=== PATIENT | male | born 1995 | race Caucasian/White ===

== ENCOUNTER 2022-11-21 16:49 | Emergency (ER) | payer MEDICAID ==
[~2022-11-21] VITALS: Ht 170.2 cm; Wt 77.1 kg
[2022-11-21 17:13] VITALS: BP 110/56
--- NOTE | 2022-11-21 17:15 | NUR ---
LEFT ELBOW PAIN R/T GROUND LEVEL FALL
--- NOTE | 2022-11-21 17:15 | NUR ---
Norma moran in [facility] - 11/21/22 at 1905 by ANIA LEFT ELBOW PAIN R/T GROUND LEVEL FALL
--- NOTE | 2022-11-21 18:55 | NUR ---
AT BEDSIDE FOR EVAL
--- NOTE | 2022-11-21 20:03 | NUR ---
X-RAY AT BEDSIDE
== END 2022-11-21 20:52 | disposition home or self-care (01) ==
LOC: ER 17:00
DX: S50.02XA Contusion of left elbow, initial encounter (principal); Z60.2 Problems related to living alone; W17.89XA Other fall from one level to another, initial encounter; Y93.39 Activity, other involving climbing, rappelling and jumping off; Y92.89 Other specified places as the place of occurrence of the external cause; Y99.8 Other external cause status
CPT/HCPCS: 73080-TC

== ENCOUNTER 2023-02-13 00:22 | Emergency (ER) | payer MEDICAID, OTHER ==
[~2023-02-13] VITALS: Ht 170.2 cm; Wt 81.2 kg
[2023-02-13] MEDS ORDERED: CEPHALEXIN MONOHYDRATE 500 MG CAPSULE PO ONE ×2 (00:30)
[2023-02-13] MEDS ORDERED: CEPH500C2 PO (00:30)
[2023-02-13] MEDS ORDERED: SULF1TAB48 PO (00:30)
[2023-02-13] MEDS ORDERED: SULFAMETH/TRIMETH 800/160 MG 1 UDTAB TABLET ONE (00:53)
[2023-02-13] MEDS ORDERED: SULFAMETH/TRIMETH 800/160 MG 1 UDTAB TABLET PO ONE (01:00)
[2023-02-13 01:13] LABS: BASOPHILS # (AUTO) 0.2 K/uL (0.0-0.2); BASOPHILS % (AUTO) 1.9 % (0.0-2.0); EOSINOPHILS % (AUTO) 0.3 % (0.0-6.0); HEMATOCRIT 41 % (39-51); LYMPHOCYTES # (AUTO) 1.3 K/uL (0.8-4.8); LYMPHOCYTES % (AUTO) 13.3 % (20.0-44.0); MEAN CORPUSCULAR HEMOGLOBIN 31 PG (26.0-33.0); MEAN CORPUSCULAR HGB CONC 34 g/dl (31.0-36.0); MEAN CORPUSCULAR VOLUME 90 fL (80-96); MONOCYTES # (AUTO) 0.4 K/uL (0.1-1.30); MONOCYTES % (AUTO) 3.9 % (2.0-12.0); NEUTROPHILS # (AUTO) 7.8 K/uL (1.8-8.9); NEUTROPHILS % (AUTO) 80.6 % (43.0-81.0); PLATELET COUNT (AUTO) 230 K/uL (150-450); RED BLOOD CELL COUNT(AUTO) 4.59 MIL/uL (4.5-6.0); RED CELL DISTRIBUTION WIDTH 13.2 % (11.5-15.0); WHITE BLOOD COUNT (AUTO) 9.6 K/uL (4.3-11.0)
[2023-02-13 01:21] LABS: APPEARANCE,URINE CLEAR (CLEAR); BILIRUBIN,URINE NEGATIVE (NEGATIVE); BLOOD, URINE NEGATIVE Ery/uL (NEGATIVE); COLOR,URINE YELLOW (YELLOW); KETONES,URINE NEGATIVE (NEGATIVE); LEUKOCYTE ESTERASE ,URINE NEGATIVE (NEGATIVE); NITRITE, URINE NEGATIVE (NEGATIVE); PROTEIN,URINE NEGATIVE (NEGATIVE); UGLUCOSE NEGATIVE (NEGATIVE)
[2023-02-13 01:31] LABS: AMPHETAMINE, URINE NEGATIVE (NEGATIVE); BARBITURATE, URINE NEGATIVE (NEGATIVE); BENZODIAZEPINE, URINE NEGATIVE (NEGATIVE); COCCAINE, URINE NEGATIVE (NEGATIVE); OPIATE, URINE NEGATIVE (NEGATIVE); PHENCYCLIDINE SCREEN,URINE NEGATIVE (NEGATIVE)
[2023-02-13 01:31] LABS: CALCIUM, SERUM 8.9 mg/dL (8.5-10.1); CARBON DIOXIDE 26 mmol/L (21-32); CHLORIDE 105 mmol/L (98-107); CREATININE 1.1 mg/dL (0.6-1.3); GLUCOSE 94 mg/dL (74-106); POTASSIUM 3.7 mmol/L (3.5-5.1); SODIUM SERUM 140 mmol/L (136-145); UREA NITROGEN, BLOOD 12 mg/dL (7-18)
[2023-02-13 01:33] LABS: CANNABINOID, URINE POSITIVE (NEGATIVE)
[2023-02-13 01:44] LABS: ALANINE AMINOTRANSFERASE 27 U/L (12-78); ALBUMIN 4.1 g/dL (3.4-5.0); ALKALINE PHOSPHATASE 46 U/L (46-116); ASPARTATE AMINOTRANSFERASE 17 U/L (15-37); BILIRUBIN,DIRECT 0.1 mg/dL (0.0-0.2); BILIRUBIN,TOTAL 0.2 mg/dL (0.2-1.0); TOTAL PROTEIN, SERUM 7.1 g/dL (6.4-8.2)
[2023-02-13 01:45] LABS: ACETAMINOPHEN <10 ug/ml (10-30); ALCOHOL, BLOOD < 3 mg/dL (0-10); SALICYLATE 2.4 mg/dL (2.8-20.0)
[2023-02-13] MEDS ORDERED: ACETAMINOPHEN 325 MG TABLET ONE (02:28)
[2023-02-13] MEDS ORDERED: ACETAMINOPHEN 325 MG TABLET PO ONE (02:30)
[2023-02-13 03:02] VITALS: BP 132/90; TEMP 98.2; O2SAT 100
== END 2023-02-13 03:02 | disposition home or self-care (01) ==
LOC: ER 00:23
DX: L03.113 Cellulitis of right upper limb (principal); R46.1 Bizarre personal appearance; Z60.2 Problems related to living alone; Z20.822 Contact with and (suspected) exposure to COVID-19
CPT/HCPCS: 99284; 85025; 80048; 80076; 81003; 36415; 87426; 80143; 80320; 80307; C9803; G0480

== ENCOUNTER 2023-02-14 08:05 | Emergency (ER) | payer OTHER ==
[~2023-02-14] VITALS: Ht 170.2 cm; Wt 80.7 kg
[~2023-02-14 08:05] MED LIST: CEPH500C2 PO; SULF1TAB48 PO
[2023-02-14 09:02] LABS: BASOPHILS # (AUTO) 0.1 K/uL (0.0-0.2); BASOPHILS % (AUTO) 0.9 % (0.0-2.0); EOSINOPHILS # (AUTO) 0.1 K/uL (0.0-0.7); EOSINOPHILS % (AUTO) 0.9 % (0.0-6.0); HEMATOCRIT 44 % (39-51); HEMOGLOBIN 14.8 g/dL (13.5-17.5); LYMPHOCYTES # (AUTO) 2.2 K/uL (0.8-4.8); LYMPHOCYTES % (AUTO) 31.9 % (20.0-44.0); MEAN CORPUSCULAR HEMOGLOBIN 31 PG (26.0-33.0); MEAN CORPUSCULAR HGB CONC 34 g/dl (31.0-36.0); MEAN CORPUSCULAR VOLUME 91 fL (80-96); MONOCYTES # (AUTO) 0.6 K/uL (0.1-1.30); MONOCYTES % (AUTO) 8.7 % (2.0-12.0); NEUTROPHILS # (AUTO) 3.9 K/uL (1.8-8.9); NEUTROPHILS % (AUTO) 57.6 % (43.0-81.0); PLATELET COUNT (AUTO) 238 K/uL (150-450); RED BLOOD CELL COUNT(AUTO) 4.83 MIL/uL (4.5-6.0); RED CELL DISTRIBUTION WIDTH 13.4 % (11.5-15.0); WHITE BLOOD COUNT (AUTO) 6.8 K/uL (4.3-11.0)
[2023-02-14 09:11] LABS: APPEARANCE,URINE CLEAR (CLEAR); BILIRUBIN,URINE NEGATIVE (NEGATIVE); BLOOD, URINE NEGATIVE Ery/uL (NEGATIVE); COLOR,URINE YELLOW (YELLOW); KETONES,URINE NEGATIVE (NEGATIVE); LEUKOCYTE ESTERASE ,URINE NEGATIVE (NEGATIVE); NITRITE, URINE NEGATIVE (NEGATIVE); PH,URINE 6.5 (5.0-8.0); PROTEIN,URINE NEGATIVE (NEGATIVE); UGLUCOSE NEGATIVE (NEGATIVE)
[2023-02-14 09:26] LABS: ALANINE AMINOTRANSFERASE 23 U/L (12-78); ALBUMIN 4.3 g/dL (3.4-5.0); ALKALINE PHOSPHATASE 50 U/L (46-116); AMPHETAMINE, URINE NEGATIVE (NEGATIVE); ASPARTATE AMINOTRANSFERASE 13 U/L (15-37); BARBITURATE, URINE NEGATIVE (NEGATIVE); BENZODIAZEPINE, URINE NEGATIVE (NEGATIVE); BILIRUBIN,DIRECT 0.1 mg/dL (0.0-0.2); BILIRUBIN,TOTAL 0.2 mg/dL (0.2-1.0); CALCIUM, SERUM 9.4 mg/dL (8.5-10.1); CANNABINOID, URINE NEGATIVE (NEGATIVE); CARBON DIOXIDE 28 mmol/L (21-32); CHLORIDE 107 mmol/L (98-107); COCCAINE, URINE NEGATIVE (NEGATIVE); CREATININE 1.3 mg/dL (0.6-1.3); GLUCOSE 62 mg/dL (74-106); OPIATE, URINE NEGATIVE (NEGATIVE); PHENCYCLIDINE SCREEN,URINE NEGATIVE (NEGATIVE); POTASSIUM 3.2 mmol/L (3.5-5.1); SODIUM SERUM 144 mmol/L (136-145); TOTAL PROTEIN, SERUM 7.3 g/dL (6.4-8.2); UREA NITROGEN, BLOOD 10 mg/dL (7-18)
[2023-02-14 09:28] LABS: ALCOHOL, BLOOD < 3 mg/dL (0-10); SALICYLATE 2.5 mg/dL (2.8-20.0)
[2023-02-14 09:29] LABS: ACETAMINOPHEN <10 ug/ml (10-30)
[2023-02-14] MEDS ORDERED: POTASSIUM CHLORIDE 20 MEQ TAB.PRT.SR PO ONE (10:57)
[2023-02-14] MEDS: POTASSIUM CHLORIDE 20 MEQ TAB.PRT.SR PO ONE (11:00)
[2023-02-14 19:34] VITALS: BP 139/73; TEMP 98.4; O2SAT 99
== END 2023-02-14 19:30 | disposition short-term general hospital (02) ==
LOC: ER 08:08
DX: R46.1 Bizarre personal appearance (principal); Z79.899 Other long term (current) drug therapy; Z20.822 Contact with and (suspected) exposure to COVID-19; Z60.2 Problems related to living alone
CPT/HCPCS: 99285; 85025; 80048; 80076; 81003; 36415; 82962 ×2; 87426; 80143; 80320; 80307; C9803; G0480

== ENCOUNTER → 2023-04-03 | Emergency (ER) | payer OTHER ==
[~2023-04-03] VITALS: Ht 167.6 cm; Wt 81.6 kg
[2023-04-03 13:50] VITALS: BP 128/73; TEMP 98.7; O2SAT 98
== END | disposition left against medical advice (07) ==
LOC: ER 13:46
DX: R45.89 Other symptoms and signs involving emotional state (principal); Z79.899 Other long term (current) drug therapy; Z60.2 Problems related to living alone

== ENCOUNTER 2023-04-07 02:23 | Emergency (ER) | payer OTHER ==
[~2023-04-07] VITALS: Ht 162.6 cm; Wt 68.0 kg
[2023-04-07 02:33] VITALS: BP 146/78; TEMP 98.3; O2SAT 98
== END 2023-04-07 04:24 | disposition left against medical advice (07) ==
LOC: ER 02:32
DX: S20.419A Abrasion of unspecified back wall of thorax, initial encounter (principal); Z53.21 Procedure and treatment not carried out due to patient leaving prior to being seen by health care provider; X58.XXXA Exposure to other specified factors, initial encounter; Y93.89 Activity, other specified; Y92.89 Other specified places as the place of occurrence of the external cause; Y99.8 Other external cause status

== ENCOUNTER 2023-04-27 23:12 | Emergency (ER) | payer OTHER ==
[~2023-04-27] VITALS: Ht 170.2 cm; Wt 82.6 kg
[2023-04-28 00:23] LABS: BASOPHILS # (AUTO) 0.1 K/uL (0.0-0.2); BASOPHILS % (AUTO) 1.1 % (0.0-2.0); EOSINOPHILS # (AUTO) 0.1 K/uL (0.0-0.7); EOSINOPHILS % (AUTO) 1.4 % (0.0-6.0); HEMATOCRIT 47 % (39-51); HEMOGLOBIN 15.7 g/dL (13.5-17.5); LYMPHOCYTES # (AUTO) 2.2 K/uL (0.8-4.8); LYMPHOCYTES % (AUTO) 28.4 % (20.0-44.0); MEAN CORPUSCULAR HEMOGLOBIN 30 PG (26.0-33.0); MEAN CORPUSCULAR HGB CONC 33 g/dl (31.0-36.0); MEAN CORPUSCULAR VOLUME 91 fL (80-96); MONOCYTES # (AUTO) 0.4 K/uL (0.1-1.30); MONOCYTES % (AUTO) 5.8 % (2.0-12.0); NEUTROPHILS # (AUTO) 4.8 K/uL (1.8-8.9); NEUTROPHILS % (AUTO) 63.3 % (43.0-81.0); PLATELET COUNT (AUTO) 220 K/uL (150-450); RED BLOOD CELL COUNT(AUTO) 5.18 MIL/uL (4.5-6.0); RED CELL DISTRIBUTION WIDTH 13.6 % (11.5-15.0); WHITE BLOOD COUNT (AUTO) 7.6 K/uL (4.3-11.0)
[2023-04-28 00:45] LABS: CALCIUM, SERUM 9.1 mg/dL (8.5-10.1); CREATININE 1.1 mg/dL (0.6-1.3); POTASSIUM 3.7 mmol/L (3.5-5.1)
[2023-04-28 01:20] LABS: ALBUMIN 4.2 g/dL (3.4-5.0); BILIRUBIN,TOTAL 0.3 mg/dL (0.2-1.0); TOTAL PROTEIN, SERUM 7.2 g/dL (6.4-8.2)
[2023-04-28 01:46] VITALS: BP 139/66; TEMP 98.7; O2SAT 99
== END 2023-04-28 01:46 | disposition home or self-care (01) ==
LOC: ER 23:22
DX: R53.1 Weakness (principal); Z79.899 Other long term (current) drug therapy; Z60.2 Problems related to living alone
CPT/HCPCS: 36415; 80053-TC; 85025-TC

== ENCOUNTER 2023-07-03 22:50 | Emergency (ER) | payer OTHER ==
[~2023-07-03] VITALS: Ht 167.6 cm; Wt 83.0 kg
[2023-07-04 03:10] LABS: BASOPHILS % (AUTO) 0.5 % (0.0-2.0); EOSINOPHILS # (AUTO) 0.1 K/uL (0.0-0.7); EOSINOPHILS % (AUTO) 1.2 % (0.0-6.0); HEMATOCRIT 44 % (39-51); HEMOGLOBIN 14.9 g/dL (13.5-17.5); LYMPHOCYTES # (AUTO) 2.8 K/uL (0.8-4.8); LYMPHOCYTES % (AUTO) 27.8 % (20.0-44.0); MEAN CORPUSCULAR HEMOGLOBIN 31 PG (26.0-33.0); MEAN CORPUSCULAR HGB CONC 34 g/dl (31.0-36.0); MEAN CORPUSCULAR VOLUME 91 fL (80-96); MONOCYTES # (AUTO) 0.6 K/uL (0.1-1.30); MONOCYTES % (AUTO) 6.2 % (2.0-12.0); NEUTROPHILS # (AUTO) 6.4 K/uL (1.8-8.9); NEUTROPHILS % (AUTO) 64.3 % (43.0-81.0); PLATELET COUNT (AUTO) 228 K/uL (150-450); RED BLOOD CELL COUNT(AUTO) 4.83 MIL/uL (4.5-6.0); RED CELL DISTRIBUTION WIDTH 13.7 % (11.5-15.0)
[2023-07-04 03:17] LABS: APPEARANCE,URINE CLEAR (CLEAR); BILIRUBIN,URINE NEGATIVE (NEGATIVE); BLOOD, URINE NEGATIVE Ery/uL (NEGATIVE); COLOR,URINE YELLOW (YELLOW); KETONES,URINE NEGATIVE (NEGATIVE); LEUKOCYTE ESTERASE ,URINE 1+ (NEGATIVE); NITRITE, URINE NEGATIVE (NEGATIVE); PH,URINE 6.5 (5.0-8.0); PROTEIN,URINE NEGATIVE (NEGATIVE); UGLUCOSE NEGATIVE (NEGATIVE); UROBILINOGEN,URINE 0.2 EU/dL (0.2)
[2023-07-04 03:18] LABS: ADD URINE CULTURE YES; BACTERIA,URINE Rare /HPF (None Seen); RBC,URINE 0-2 /HPF (0-2); SQUAMOUS EPITHELIAL CELL,UR Rare /HPF (None Seen)
[2023-07-04 03:19] LABS: CALCIUM, SERUM 8.9 mg/dL (8.5-10.1); CARBON DIOXIDE 28 mmol/L (21-32); CHLORIDE 102 mmol/L (98-107); GLUCOSE 85 mg/dL (74-106); POTASSIUM 3.7 mmol/L (3.5-5.1); SODIUM SERUM 138 mmol/L (136-145); UREA NITROGEN, BLOOD 21 mg/dL (7-18)
[2023-07-04 03:33] LABS: ALANINE AMINOTRANSFERASE 28 U/L (12-78); ALBUMIN 3.9 g/dL (3.4-5.0); ALCOHOL, BLOOD < 3 mg/dL (0-10); ALKALINE PHOSPHATASE 47 U/L (46-116); ASPARTATE AMINOTRANSFERASE 16 U/L (15-37); BILIRUBIN,TOTAL 0.4 mg/dL (0.2-1.0); TOTAL PROTEIN, SERUM 7.4 g/dL (6.4-8.2)
[2023-07-04 03:36] LABS: AMPHETAMINE, URINE NEGATIVE (NEGATIVE); BARBITURATE, URINE NEGATIVE (NEGATIVE); BENZODIAZEPINE, URINE NEGATIVE (NEGATIVE); CANNABINOID, URINE NEGATIVE (NEGATIVE); COCCAINE, URINE NEGATIVE (NEGATIVE); OPIATE, URINE NEGATIVE (NEGATIVE); PHENCYCLIDINE SCREEN,URINE NEGATIVE (NEGATIVE)
[2023-07-04 06:50] VITALS: BP 139/89; TEMP 98.7; O2SAT 99
== END 2023-07-04 06:51 | disposition home or self-care (01) ==
LOC: ER 22:51
DX: S60.222A Contusion of left hand, initial encounter (principal); F41.9 Anxiety disorder, unspecified; Z59.00 Homelessness unspecified; W22.01XA Walked into wall, initial encounter; Y93.89 Activity, other specified; Y92.89 Other specified places as the place of occurrence of the external cause; Y99.8 Other external cause status
CPT/HCPCS: 36415; 73130-TC; 80053-TC; 81001; 85025-TC; 87086-TC; G0480

== ENCOUNTER 2023-08-28 22:08 | Emergency (ER) | payer OTHER ==
[~2023-08-28] VITALS: Ht 167.6 cm; Wt 83.9 kg
[2023-08-28 22:53] VITALS: BP 156/95; TEMP 98.1; O2SAT 98
[2023-08-28] MEDS ORDERED: CYCLOBENZAPRINE 10 MG TABLET ONE (23:31)
[2023-08-28] MEDS ORDERED: LIDOCAINE 5% (PATCH) 1 EA PATCH TP ONE (23:31)
[2023-08-28] MEDS ORDERED: ACETAMINOPHEN ES 500 MG TABLET ONE (23:31)
[2023-08-28] MEDS ORDERED: IBUPROFEN 400 MG TABLET ONE (23:32)
[2023-08-28] MEDS: ACETAMINOPHEN ES 500 MG TABLET PO ONE (23:39)
[2023-08-28] MEDS: LIDOCAINE 5% (PATCH) 1 EA PATCH TP ONE (23:39)
[2023-08-28] MEDS: IBUPROFEN 400 MG TABLET PO ONE (23:39)
[2023-08-28] MEDS: CYCLOBENZAPRINE 10 MG TABLET PO ONE (23:39)
[2023-08-28] MEDS ORDERED: CYCL5TAB PO (23:40)
[2023-08-28] MEDS ORDERED: IBUP-1955 PO (23:40)
[2023-08-28] MEDS ORDERED: ACET-2605 PO (23:40)
== END 2023-08-28 23:56 | disposition home or self-care (01) ==
LOC: ER 22:09
DX: M54.2 Cervicalgia (principal); Z79.899 Other long term (current) drug therapy; Z59.00 Homelessness unspecified

== ENCOUNTER 2023-10-07 15:34 | Emergency (ER) | payer OTHER ==
[~2023-10-07] VITALS: Ht 170.2 cm; Wt 63.5 kg
[~2023-10-07 15:34] MED LIST changes: +ACET-2605 PO; +CYCL5TAB PO; +IBUP-1955 PO
[2023-10-07 15:44] VITALS: BP 135/78; TEMP 98.4; O2SAT 98
[2023-10-07] MEDS ORDERED: MUPI22OI2 TP (18:11)
[2023-10-07] MEDS ORDERED: IBUP-1955 PO (18:11)
== END 2023-10-07 23:05 | disposition home or self-care (01) ==
LOC: ER 15:37
DX: S90.31XA Contusion of right foot, initial encounter (principal); M54.2 Cervicalgia; L98.8 Other specified disorders of the skin and subcutaneous tissue; Z59.00 Homelessness unspecified; W18.39XA Other fall on same level, initial encounter; Y93.89 Activity, other specified; Y92.89 Other specified places as the place of occurrence of the external cause; Y99.2 Volunteer activity
CPT/HCPCS: 72050-TC; 73630-TC

== ENCOUNTER 2023-10-13 03:52 | Emergency (ER) | payer OTHER ==
[~2023-10-13] VITALS: Ht 172.7 cm; Wt 81.6 kg
[~2023-10-13 03:52] MED LIST changes: +MUPI22OI2 TP
[2023-10-13 05:54] VITALS: BP 132/84; TEMP 98.2; O2SAT 98
== END 2023-10-13 05:56 | disposition home or self-care (01) ==
LOC: ER 03:57
DX: S80.262A Insect bite (nonvenomous), left knee, initial encounter (principal); S80.261A Insect bite (nonvenomous), right knee, initial encounter; Z59.00 Homelessness unspecified; Z79.899 Other long term (current) drug therapy; W57.XXXA Bitten or stung by nonvenomous insect and other nonvenomous arthropods, initial encounter; Y93.89 Activity, other specified; Y92.89 Other specified places as the place of occurrence of the external cause; Y99.8 Other external cause status

== ENCOUNTER 2023-10-13 06:47 | Emergency (ER) | payer OTHER ==
[~2023-10-13] VITALS: Ht 172.7 cm; Wt 82.6 kg
[2023-10-13 07:52] LABS: BASOPHILS % (AUTO) 0.9 % (0.0-2.0); EOSINOPHILS # (AUTO) 0.1 K/uL (0.0-0.7); EOSINOPHILS % (AUTO) 1.5 % (0.0-6.0); HEMATOCRIT 44 % (39-51); HEMOGLOBIN 14.8 g/dL (13.5-17.5); LYMPHOCYTES # (AUTO) 1.4 K/uL (0.8-4.8); LYMPHOCYTES % (AUTO) 29.2 % (20.0-44.0); MEAN CORPUSCULAR HEMOGLOBIN 31 PG (26.0-33.0); MEAN CORPUSCULAR HGB CONC 34 g/dl (31.0-36.0); MEAN CORPUSCULAR VOLUME 91 fL (80-96); MONOCYTES # (AUTO) 0.4 K/uL (0.1-1.30); MONOCYTES % (AUTO) 7.8 % (2.0-12.0); NEUTROPHILS # (AUTO) 2.9 K/uL (1.8-8.9); NEUTROPHILS % (AUTO) 60.6 % (43.0-81.0); PLATELET COUNT (AUTO) 222 K/uL (150-450); RED BLOOD CELL COUNT(AUTO) 4.81 MIL/uL (4.5-6.0); RED CELL DISTRIBUTION WIDTH 12.9 % (11.5-15.0); WHITE BLOOD COUNT (AUTO) 4.8 K/uL (4.3-11.0)
[2023-10-13 07:53] LABS: APPEARANCE,URINE CLEAR (CLEAR); BILIRUBIN,URINE NEGATIVE (NEGATIVE); BLOOD, URINE NEGATIVE Ery/uL (NEGATIVE); COLOR,URINE YELLOW (YELLOW); KETONES,URINE 1+ mg/dL (NEGATIVE); LEUKOCYTE ESTERASE ,URINE NEGATIVE (NEGATIVE); NITRITE, URINE NEGATIVE (NEGATIVE); PROTEIN,URINE NEGATIVE (NEGATIVE); UGLUCOSE NEGATIVE (NEGATIVE); UROBILINOGEN,URINE 0.2 EU/dL (0.2)
[2023-10-13 08:16] LABS: CALCIUM, SERUM 8.1 mg/dL (8.5-10.1); CARBON DIOXIDE 27 mmol/L (21-32); CHLORIDE 104 mmol/L (98-107); GLUCOSE 131 mg/dL (74-106); POTASSIUM 3.7 mmol/L (3.5-5.1); SODIUM SERUM 139 mmol/L (136-145); UREA NITROGEN, BLOOD 17 mg/dL (7-18)
[2023-10-13 08:18] LABS: AMPHETAMINE, URINE NEGATIVE (NEGATIVE); BARBITURATE, URINE NEGATIVE (NEGATIVE); BENZODIAZEPINE, URINE NEGATIVE (NEGATIVE); CANNABINOID, URINE NEGATIVE (NEGATIVE); COCCAINE, URINE NEGATIVE (NEGATIVE); OPIATE, URINE NEGATIVE (NEGATIVE); PHENCYCLIDINE SCREEN,URINE NEGATIVE (NEGATIVE)
[2023-10-13 08:24] LABS: ALANINE AMINOTRANSFERASE 21 U/L (12-78); ALBUMIN 3.7 g/dL (3.4-5.0); ALCOHOL, BLOOD < 3 mg/dL (0-10); ALKALINE PHOSPHATASE 54 U/L (46-116); ASPARTATE AMINOTRANSFERASE 19 U/L (15-37); BILIRUBIN,DIRECT 0.3 mg/dL (0.0-0.2); BILIRUBIN,TOTAL 0.8 mg/dL (0.2-1.0); TOTAL PROTEIN, SERUM 6.8 g/dL (6.4-8.2)
[2023-10-13 08:27] LABS: ADD URINE CULTURE NO; BACTERIA,URINE 1+ /HPF (None Seen); MUCUS,URINE Rare /LPF (None Seen); RBC,URINE 0-2 /HPF (0-2); SQUAMOUS EPITHELIAL CELL,UR None Seen /HPF (None Seen); WBC,URINE 0-2 /HPF (0-3)
[2023-10-13 08:31] LABS: ACETAMINOPHEN <10 ug/ml (10-30); SALICYLATE < 0.2 mg/dL (2.8-20.0)
[2023-10-13 13:31] VITALS: BP 120/71; TEMP 98.3; O2SAT 99
== END 2023-10-13 13:31 ==
LOC: ER 06:52
DX: R45.851 Suicidal ideations (principal); F32.A Depression, unspecified; F19.10 Other psychoactive substance abuse, uncomplicated; Z59.00 Homelessness unspecified; Z20.822 Contact with and (suspected) exposure to COVID-19; Z79.899 Other long term (current) drug therapy
CPT/HCPCS: 36415; 80048-TC; 80076-TC; 81001; 85025-TC; G0480

== ENCOUNTER 2023-11-09 16:14 | Emergency (ER) | payer OTHER ==
[~2023-11-09] VITALS: Ht 165.1 cm; Wt 83.0 kg
[2023-11-09 16:20] VITALS: BP 137/101; TEMP 98.6
[2023-11-09] MEDS ORDERED: ACET325C7 PO (16:48)
[2023-11-09 16:53] VITALS: O2SAT 98
== END 2023-11-09 16:54 | disposition home or self-care (01) ==
LOC: ER 16:19
DX: J02.9 Acute pharyngitis, unspecified (principal); F19.10 Other psychoactive substance abuse, uncomplicated; Z59.00 Homelessness unspecified

== ENCOUNTER 2023-12-15 15:54 | Emergency (ER) | payer OTHER ==
[~2023-12-15] VITALS: Ht 170.2 cm; Wt 86.2 kg
[~2023-12-15 15:54] MED LIST changes: +ACET325C7 PO
[2023-12-15 17:59] LABS: BASOPHILS % (AUTO) 0.5 % (0.0-2.0); EOSINOPHILS % (AUTO) 0.4 % (0.0-6.0); HEMATOCRIT 45 % (39-51); HEMOGLOBIN 15.5 g/dL (13.5-17.5); LYMPHOCYTES # (AUTO) 1.9 K/uL (0.8-4.8); LYMPHOCYTES % (AUTO) 21.5 % (20.0-44.0); MEAN CORPUSCULAR HEMOGLOBIN 31 PG (26.0-33.0); MEAN CORPUSCULAR HGB CONC 34 g/dl (31.0-36.0); MEAN CORPUSCULAR VOLUME 90 fL (80-96); MONOCYTES # (AUTO) 0.6 K/uL (0.1-1.30); MONOCYTES % (AUTO) 6.9 % (2.0-12.0); NEUTROPHILS # (AUTO) 6.3 K/uL (1.8-8.9); NEUTROPHILS % (AUTO) 70.7 % (43.0-81.0); PLATELET COUNT (AUTO) 223 K/uL (150-450); RED BLOOD CELL COUNT(AUTO) 5.06 MIL/uL (4.5-6.0)
[2023-12-15 18:14] LABS: CALCIUM, SERUM 9.6 mg/dL (8.5-10.1); CREATININE 0.9 mg/dL (0.6-1.3); MAGNESIUM 2.3 mg/dL (1.8-2.4)
[2023-12-15] MEDS: IV NS 0.9% 1,000 ML IV ONE (18:28)
[2023-12-15 19:28] VITALS: BP 134/71; TEMP 98.6; O2SAT 96
== END 2023-12-15 19:29 | disposition home or self-care (01) ==
LOC: ER 15:57
DX: E86.0 Dehydration (principal); F19.10 Other psychoactive substance abuse, uncomplicated; Z59.00 Homelessness unspecified
CPT/HCPCS: 99285; 96360; 85025; 80048; 83735; 36415; J7030

== ENCOUNTER 2024-01-03 20:12 | Emergency (ER) | payer OTHER ==
[~2024-01-03] VITALS: Ht 170.2 cm; Wt 79.4 kg
[2024-01-03 21:46] VITALS: BP 157/80; TEMP 98.7
[2024-01-03] MEDS ORDERED: LORAZEPAM 1 MG TABLET ONE (22:59)
[2024-01-03] MEDS: LORAZEPAM 1 MG TABLET PO ONE (23:06)
[2024-01-03 23:25] VITALS: O2SAT 98
== END 2024-01-03 23:28 | disposition home or self-care (01) ==
LOC: ER 20:14
DX: F22 Delusional disorders (principal); F19.10 Other psychoactive substance abuse, uncomplicated; Z59.00 Homelessness unspecified

== ENCOUNTER 2024-01-05 01:33 | Emergency (ER) | payer OTHER | END 2024-01-05 02:11 | disposition left against medical advice (07) | LOC: ER 01:36 | DX: M79.643 Pain in unspecified hand (principal); Z53.21 Procedure and treatment not carried out due to patient leaving prior to being seen by health care provider ==

== ENCOUNTER 2024-01-10 03:43 | Emergency (ER) | payer BC, OTHER ==
[~2024-01-10] VITALS: Ht 170.2 cm; Wt 79.4 kg
[2024-01-10 03:46] VITALS: BP 142/82; TEMP 98
[2024-01-10] MEDS ORDERED: ONDANSETRON 4 MG TAB.RAPDIS ONE (04:37)
[2024-01-10] MEDS: ONDANSETRON 4 MG TAB.RAPDIS SL ONE (04:41)
[2024-01-10 04:50] VITALS: O2SAT 98
== END 2024-01-10 04:50 | disposition admitted as inpatient to this hospital (09) ==
LOC: ER 03:46
DX: R11.0 Nausea (principal); F22 Delusional disorders; F19.10 Other psychoactive substance abuse, uncomplicated; Z60.2 Problems related to living alone
CPT/HCPCS: 99283; Q0162

== ENCOUNTER 2024-01-24 23:41 | Emergency (ER) | payer BC, OTHER ==
[~2024-01-24] VITALS: Ht 162.6 cm; Wt 68.0 kg
[2024-01-24 23:57] VITALS: TEMP 97.6
[2024-01-25] MEDS ORDERED: LIDOCAINE 1% INJ 50 ML MDV IJ ONE (00:39)
[2024-01-25] MEDS ORDERED: TDAP [DIPH/PERTUSSIS/TET] 0.5 ML VIAL IM ONE (00:39)
[2024-01-25] MEDS: LIDOCAINE 1% INJ 50 ML MDV IJ ONE (00:40)
[2024-01-25] MEDS: TDAP [DIPH/PERTUSSIS/TET] 0.5 ML VIAL IM ONE (00:41)
[2024-01-25 03:50] VITALS: BP 138/72; O2SAT 99
== END 2024-01-25 01:41 ==
LOC: ER 23:47
DX: S61.411A Laceration without foreign body of right hand, initial encounter (principal); S60.221A Contusion of right hand, initial encounter; F22 Delusional disorders; F19.10 Other psychoactive substance abuse, uncomplicated; Z60.2 Problems related to living alone; X58.XXXA Exposure to other specified factors, initial encounter; Y93.89 Activity, other specified; Y92.89 Other specified places as the place of occurrence of the external cause; Y99.8 Other external cause status
CPT/HCPCS: 99283; 90471; 90715; 73130; J3490

== ENCOUNTER 2024-01-26 20:56 | Emergency (ER) | payer BC, OTHER ==
[~2024-01-26] VITALS: Ht 172.7 cm; Wt 86.2 kg
[2024-01-26] MEDS: IBUPROFEN 400 MG TABLET PO ONE (22:04)
[2024-01-26 22:07] VITALS: BP 124/68; TEMP 98.1; O2SAT 98
== END 2024-01-26 22:07 ==
LOC: ER 21:04
DX: M54.6 Pain in thoracic spine (principal); F22 Delusional disorders; F19.10 Other psychoactive substance abuse, uncomplicated; Z60.2 Problems related to living alone

== ENCOUNTER 2024-06-21 11:11 | Emergency (ER) | payer OTHER ==
[~2024-06-21] VITALS: Ht 167.6 cm; Wt 97.5 kg
[2024-06-21 11:38] VITALS: BP 132/73; TEMP 97.8; O2SAT 96
[2024-06-21 12:46] LABS: BASOPHILS # (AUTO) 0.1 K/uL (0.0-0.2); BASOPHILS % (AUTO) 0.7 % (0.0-2.0); EOSINOPHILS # (AUTO) 0.1 K/uL (0.0-0.7); EOSINOPHILS % (AUTO) 1.8 % (0.0-6.0); HEMATOCRIT 47 % (39-51); HEMOGLOBIN 15.8 g/dL (13.5-17.5); LYMPHOCYTES # (AUTO) 1.8 K/uL (0.8-4.8); LYMPHOCYTES % (AUTO) 26.1 % (20.0-44.0); MEAN CORPUSCULAR HEMOGLOBIN 30 PG (26.0-33.0); MEAN CORPUSCULAR HGB CONC 34 g/dl (31.0-36.0); MEAN CORPUSCULAR VOLUME 89 fL (80-96); MONOCYTES # (AUTO) 0.6 K/uL (0.1-1.30); MONOCYTES % (AUTO) 8.9 % (2.0-12.0); NEUTROPHILS # (AUTO) 4.3 K/uL (1.8-8.9); NEUTROPHILS % (AUTO) 62.5 % (43.0-81.0); PLATELET COUNT (AUTO) 194 K/uL (150-450); RED CELL DISTRIBUTION WIDTH 13.2 % (11.5-15.0); WHITE BLOOD COUNT (AUTO) 6.9 K/uL (4.3-11.0)
[2024-06-21 13:04] LABS: CALCIUM, SERUM 9.5 mg/dL (8.5-10.1); POTASSIUM 4.2 mmol/L (3.5-5.1)
== END 2024-06-21 14:01 | disposition home or self-care (01) ==
LOC: ER 12:34
DX: R53.1 Weakness (principal); R05.9 Cough, unspecified; R07.9 Chest pain, unspecified; Z79.1 Long term (current) use of non-steroidal anti-inflammatories (NSAID); Z60.2 Problems related to living alone
CPT/HCPCS: 36415; 71045-TC; 80048-TC; 85025-TC

== ENCOUNTER 2025-06-01 20:30 | Emergency (ER) | payer OTHER ==
[~2025-06-01] VITALS: Ht 170.2 cm; Wt 113.4 kg
[2025-06-01] MEDS: IV NS 0.9% 1,000 ML BAG IV ONE (21:18)
[2025-06-01 21:21] LABS: PLATELET COUNT (AUTO) 207 K/uL (150-450); RED BLOOD CELL COUNT(AUTO) 5.02 MIL/uL (4.5-6.0); RED CELL DISTRIBUTION WIDTH 12.9 % (11.5-15.0); WHITE BLOOD COUNT (AUTO) 11.0 K/uL (4.3-11.0)
[2025-06-01 21:31] LABS: CALCIUM, SERUM 8.3 mg/dL (8.5-10.1); CREATININE 1.2 mg/dL (0.6-1.3); SODIUM SERUM 142.0 mmol/L (136-145); UREA NITROGEN, BLOOD 15.0 mg/dL (7-18)
[2025-06-01 21:38] LABS: APPEARANCE,URINE CLEAR (CLEAR); BLOOD, URINE NEGATIVE Ery/uL (NEGATIVE); LEUKOCYTE ESTERASE ,URINE NEGATIVE (NEGATIVE); NITRITE, URINE NEGATIVE (NEGATIVE); UGLUCOSE NEGATIVE (NEGATIVE)
[2025-06-01 21:38] LABS: ASPARTATE AMINOTRANSFERASE 18.0 U/L (15-37); TOTAL PROTEIN, SERUM 7.0 g/dL (6.4-8.2)
[2025-06-01 22:22] VITALS: BP 138/85; TEMP 98.7; O2SAT 97
== END 2025-06-01 22:23 | disposition home or self-care (01) ==
LOC: ER 20:34
DX: F20.9 Schizophrenia, unspecified (principal); K76.0 Fatty (change of) liver, not elsewhere classified; Z79.1 Long term (current) use of non-steroidal anti-inflammatories (NSAID)
CPT/HCPCS: 99284; 74176; 96360; 71045; 85025; 80048; 83690; 80076; 81003; 36415; J7030